=== PATIENT | male | born 1945 | race Caucasian/White ===

== ENCOUNTER 2018-09-10 05:39 | Inpatient (IN) | payer OTHER ==
--- NOTE | 2018-08-25 15:00 | GHP ---
DATE OF ADMISSION: 09/10/2018 He will be an a.m. admission for surgery at [facility] on September 10, 2018. PROBLEM: Right hip severe degenerative arthritis. HISTORY OF PRESENT ILLNESS: The patient is a 73-year-old man admitted for a right total hip arthropl asty. He has had progressive pain in the hip for about 2 years. His pain has been progressively wor se. He is having daily pain and occasional night pain. He has been taking 2 Aleve per day as well a s turmeric. It is difficult for him to walk. He has tried physical therapy, which helped his range of motion but did not decrease his pain. It is hard for him to get into and out of a car. Outpatien t evaluation shows very severe degenerative arthritis of his right hip. PAST MEDICAL HISTORY: Approximately 20 years ago he underwent a prostatectomy for prostate cancer. He had a heart attack about 20 years ago which was treated with an angioplasty. He is also treated f or hypertension and elevated cholesterol. No history of DVT, hepatitis, MRSA staph infection, sleep apnea, or bleeding problems. CURRENT MEDICATIONS: Metoprolol ER 12.5 mg per day, atorvastatin 20 mg a day, lisinopril 10 mg a day . One baby aspirin a day. DRUG ALLERGIES: None. METAL ALLERGY: None. LATEX ALLERGY: None. SOCIAL HISTORY: The patient is retired. He is . He stopped smoking cigarettes 35 years ago. He rarely drinks alcohol. FAMILY HISTORY: Positive for cancer. PHYSICAL EXAMINATION: VITAL SIGNS: Height 5 feet 6-1/2 inches. Weight 175 pounds. BMI 27.8. GENE RAL APPEARANCE: He is alert, healthy-appearing man. EYES: Conjunctivae and sclerae are clear. Pup ils are round and reactive. MOUTH: Good oral hygiene. No loose teeth. CHEST: Clear. HEART: Reg ular rhythm, no murmurs. EXTREMITIES: Pertinent findings are limited to his right hip. His right h ip has full extension and 80 degrees of flexion. External rotation 20 degrees. Internal rotation 0 degrees. Abduction 20 degrees. IMPRESSION ON ADMISSION: 1. Right hip severe degenerative arthritis. He is prepared for a right total hip arthroplasty. 2. History of coronary artery disease. Myocardial infarction 20 years ago. 3. Treatment for hypertension. 4. Treatment for elevated cholesterol. 5. Status post total prostatectomy for prostate cancer. 6. Status post left total knee arthroplasty. 7. His films show very severe degenerative arthritis to the right hip. He has no remaining cartilag e space. Cystic changes are present in the acetabulum and femoral head. He has slight arthritic bryant nge in his left hip. 8. His clerk of superior court is Dr. Logan at [facility] in [place]. He has had a stress echo t his year. He has been cleared by his clerk of superior court to proceed with surgery. PLAN: He will undergo a right total hip arthroplasty. The surgery has been described to him, includ ing the risks, complications, expectations, and recovery time. I have discussed with him the risk of dislocation, leg length inequality, infection, and sciatic nerve injury. He is 8 or 10 mm short on the right, and so I will be intentionally lengthening him. He is familiar with medical risks such as heart attack, pneumonia, stroke, or a urinary tract infection. All his questions have been answered , and he consents to surgery. Copy requested to: Dr. Logan [facility], [place] Dr. Angelita Heart [place] /[id number]/[facility]
[2018-09-10] MEDS ORDERED: GABAPENTIN 300 MG CAP PO ONE (05:52)
[2018-09-10] MEDS ORDERED: FAMOTIDINE 20 MG TAB PO ONE (05:52)
[2018-09-10] MEDS ORDERED: ACETAMINOPHEN 325 MG TAB PO ONE (05:52)
[2018-09-10] MEDS ORDERED: ONDANSETRON 4 MG/2 ML VIAL IVP ONE (05:52)
[2018-09-10] MEDS ORDERED: DEXAMETHASONE 4 MG/ML VIAL IVP ONE (05:52)
[2018-09-10] MEDS ORDERED: ceFAZolin 2 GM/DEXTROSE 100 ML IV ONE (05:52)
[2018-09-10] MEDS ORDERED: LR 1,000 ML IV ONE (05:53)
[2018-09-10] MEDS ORDERED: LIDOCAINE 1% 2 ML INJ ID PRN (05:53)
[2018-09-10] MEDS ORDERED: POVIDONE-IODINE 20 ML in SODIUM CL IRRIG SOLUTION 500 ML IRR ONE (06:00)
[2018-09-10] MEDS ORDERED: ROPIVACAINE 0.2% 80 MG, EPINEPHrine 0.2 MG, KETOROLAC TROMETHAMINE 30 MG in SYRINGE 0 ML IU ONE (06:00)
[2018-09-10] MEDS ORDERED: TRANEXAMIC ACID 3,000 MG in NS (SYRINGE) 50 ML IRR ONE (06:00)
[2018-09-10] MEDS ORDERED: TRANEXAMIC ACID 1,000 MG in NS 100 ML IV ONE (06:00)
[2018-09-10] MEDS ORDERED: TRANEXAMIC ACID 3,000 MG/50 ML BAG IRR ONE (06:33)
[2018-09-10] MEDS ORDERED: ceFAZolin 1 GM/5 ML SYR ONE (06:34)
[2018-09-10] MEDS ORDERED: MIDAZOLAM 2 MG/2 ML VIAL IVP ONE (06:48)
--- NOTE | 2018-09-10 06:48 | PDANEPAE ---
ANE Past Medical History - Cardiovascular History Hx Hypertension: Yes Hx Arrhythmias: No Hx Chest Pain: No Hx Coronary Artery / Peripheral Vascular Disease: Yes Hx CHF / Valvular Disease: No Hx Palpitations: No Cardiovascular History Comment: [place] 1995. CARDIAC CATH 1995 - Pulmonary History Hx COPD: No Hx Asthma/Reactive Airway Disease: No Hx Recent Upper Respiratory Infection: No Hx Oxygen in Use at Home: No Hx Sleep Apnea: No Sleep Apnea Screening Result - Last Documented: Negative - Neurologic History Hx Cerebrovascular Accident: No Hx Seizures: No Hx Dementia: No - Endocrine History Hx Diabetes: No Hypothyroid: No Hyperthyroid: No Obesity: no - Renal History Hx Renal Disorders: No - Liver History Hx Hepatic Disorders: No - Neurological & Psychiatric Hx Hx Neurological and Psychiatric Disorders: No - Cancer History Hx Cancer: Yes Cancer History Comment: PROSTATE. CERVICAL SPINE. LUPRON INJ EVERY 4 MOS - Congenital Disorder History Hx Congenital Disorders: No - GI History GERD: mild Hx Gastrointestinal Disorders: Yes Gastrointestinal History Comment: ACID REFLUX - NO MEDS - Other Health History Other Health History: NEG - Chronic Pain History Chronic Pain: Yes (R HIP) - Surgical History Prior Surgeries: CARDIAC CATH 1995. PROSTATECTOMY 1996. AND RADIATION 2011. CERVICAL RADIATION 2014. L TKA. L KNEE SCOPE ANE Review of Systems Review of Systems: - Exercise capacity Exercise capacity: limited by disability METS (RN): 4 METS ANE Patient History - Allergies Allergies/Adverse Reactions: No Known Allergies Allergy (Unverified 08/25/18 14:34) - Home Medications Home Medications: Aspirin [Aspirin 81mg (*)] 81 mg PO DAILY 08/27/18 [Last Taken 08/31/18] Atorvastatin Calcium [Lipitor 20 mg (*)] 20 mg PO HS 08/27/18 [Last Taken 18:00] Cholecalciferol Vit D3 [Vitamin D3 2000 units tab (OTC)] 5,000 units PO Q3D [Last Taken 08/31/18] Cyanocobalamin [Vitamin B12 (*)] 1,000 mcg PO DAILY 08/27/18 [Last Taken ] Folic Acid [Folic Acid 1 MG (*)] 500 mg PO DAILY 08/27/18 [Last Taken 08/31/18] Herbals/Supplements -Info Only 1 ea PO DAILY 08/27/18 [Last Taken 08/31/18] Lisinopril [Zestril 10 mg (*)] 10 mg PO DAILY 08/27/18 [Last Taken 09/09/18 07: 00] Metoprolol Succinate [Toprol Xl] 12.5 mg PO DAILY 08/27/18 [Last Taken 09/10/18 03:30] Hatfield-3 Fatty Acids [Fish Oil 1000 mg (*)] 1,000 mg PO DAILY 08/27/18 [Last Taken 08/31/18] - Anes Hx Anes Hx: no prior problems - Smoking Hx Smoking Status: Former smoker Marijuana use: No - Alcohol Use Alcohol Use: Rarely - Family Anes Hx Family Anes Hx: neg - N/A Family Hx Anesthesia Complications: NEG ANE Labs/Vital Signs - Labs - CBC WBC: 5.72 RBC: 4.29 HGB: 14.1 HCT: 43.1 Platelet Count: 252 - Vital Signs Height: 168.91 cm Weight: 77.111 kg ANE Physical Exam - Airway Neck exam: decreased ROM Mallampati Score: Class 2 Mouth exam: normal dental/mouth exam - Pulmonary Pulmonary: no respiratory distress, no rales or rhonchi, clear to auscultation - Cardiovascular Cardiovascular: regular rate and rhythym - ASA Status ASA Status: III ANE Anesthesia Plan Anesthesia Plan: MAC, spinal Total IV Anesthesia: No
--- NOTE | 2018-09-10 06:51 | PDHPUP ---
History & Physical Update H&P update statement: This history and physical update is based on an assessment of the patient which was completed after admission or registration (within 24 hours), but prior to the surgery/procedure. H&P update: H&P reviewed & patient examined
[2018-09-10] MEDS ORDERED: PROPOFOL/EMULSION 500 MG/50 ML BOTTLE IV ONE (07:07)
[2018-09-10] MEDS ORDERED: fentaNYL 100 MCG/2 ML INJ ONE (07:07)
[2018-09-10] MEDS ORDERED: BUPIVACAINE/DEXTROSE 7.5MG/ML 2 ML SPINAL AMP SP ONE (07:08)
[2018-09-10] MEDS ORDERED: PHENYLEPHRINE HCL 100 MCG/ML SYR ONE ×2 (07:23→07:37)
[2018-09-10] MEDS ORDERED: ePHEDrine SULFATE 25 MG/5 ML SYR ONE (07:41)
[2018-09-10] MEDS ORDERED: NALOXONE HCL 0.4 MG/ML INJ IVP PRN (07:46)
[2018-09-10] MEDS ORDERED: PHENYLEPHRINE HCL 100 MCG/ML SYR IVP PRN (07:46)
[2018-09-10] MEDS ORDERED: ONDANSETRON 4 MG/2 ML VIAL IVP PRN ×2 (07:46→08:47)
[2018-09-10] MEDS ORDERED: LR 500 ML IV PRN (07:46)
[2018-09-10] MEDS ORDERED: PROMETHAZINE HCL 25 MG/ML INJ IVP PRN ×2 (07:46→08:47)
[2018-09-10] MEDS ORDERED: PHENYLEPHRINE 10 MG/ML SDV ONE (08:05)
[2018-09-10] MEDS ORDERED: TEMAZEPAM 15 MG CAP PO PRN (08:47)
[2018-09-10] MEDS ORDERED: diphenhydrAMINE 25 MG CAP PO PRN (08:47)
[2018-09-10] MEDS ORDERED: LACTULOSE 20 GM/30 ML UDCUP PO PRN (08:47)
[2018-09-10] MEDS ORDERED: METOCLOPRAMIDE 10 MG/2 ML VIAL IVP PRN (08:47)
[2018-09-10] MEDS ORDERED: DIPHENOXYLATE/ATROPINE LOMOTIL 1 TAB PO PRN (08:47)
[2018-09-10] MEDS ORDERED: POLYETHYLENE GLYCOL 3350 17 GM PKT PO PRN (08:47)
[2018-09-10] MEDS ORDERED: traMADol 50 MG TAB PO PRN (08:47)
[2018-09-10] MEDS ORDERED: ONDANSETRON DISINTEGRATING 4 MG TAB PO PRN (08:47)
[2018-09-10] MEDS ORDERED: MAGNESIUM HYDROXIDE 30 ML UDCUP PO PRN (08:47)
[2018-09-10] MEDS ORDERED: PROMETHAZINE HCL 25 MG SUPPR PR PRN (08:47)
[2018-09-10] MEDS ORDERED: NS 500 ML IV PRN (08:47)
[2018-09-10] MEDS ORDERED: BISACODYL 10 MG SUPP PR PRN (08:47)
[2018-09-10] MEDS ORDERED: oxyCODONE IR 5 MG TAB PO PRN (08:47)
[2018-09-10] MEDS ORDERED: FERROUS SULFATE 140 MG TAB.ER PO SCH (09:00)
[2018-09-10] MEDS ORDERED: LR 1,000 ML IV SCH (09:00)
[2018-09-10] MEDS ORDERED: FOLIC ACID 1 MG TAB PO SCH (09:00)
--- NOTE | 2018-09-10 09:56 | GOP ---
DATE OF OPERATION: 09/10/2018 SURGEON: Yoel Man MD NEUROSURGEON: Yoel Man MD. CONSTRUCTION SALES MANAGER: Tony Eastman and Julio Aguilar. ANESTHESIA: Combination of Marcaine, spinal, and IV sedation. ANESTHESIOLOGIST: Dedra Auguste DO. PREOPERATIVE DIAGNOSIS: Right hip severe degenerative arthritis. POSTOPERATIVE DIAGNOSIS: Right hip severe degenerative arthritis. PROCEDURE PERFORMED: September 10, 2018, right total hip arthroplasty, ceramic femoral head on highly cross-linked polyethylene cup liner. FINDINGS: DESCRIPTION OF PROCEDURE: The patient was given 2 g of IV Ancef within 60 minutes of surgery. He al so received 1000 mg of IV tranexamic acid. He was placed on the operating room table and given spina l anesthesia with Marcaine by Dr. Auguste. He was then placed supine and given IV sedation. A F oley catheter was not used. He wore a DENIZ stocking and SCD on the nonoperative leg. He was rolled t o the left lateral decubitus position. The position was secured with the pegboard table attachment. An axillary roll was used, and all pressure points were carefully padded. I was careful to lock his pelvis in a vertical position. His perineum was isolated with plastic adhesive drapes. The right h ip and right lower extremity were prepped with ChloraPrep. They were draped free using sterile sheet s, stockinette, and Ioban plastic drapes. The World Health Organization time-out was performed to verify the correct surgical side and site and the correct patient identity. The Kirk time-out was also performed. I made a 5-inch straight oblique posterolateral hip skin incision. The subcutaneous tissues were sha rply divided, and hemostasis was obtained using electrocautery. His fascia sara was identified and s plit distally along the axis of its fibers. I then curved proximally and posteriorly and split the f ascia of the gluteus heather and bluntly split the muscle fibers in line with their orientation. The Charnley self-retaining retractor was inserted. His sciatic nerve was located, partially exposed, a nd protected throughout the procedure. The external rotators and the posterior hip capsule were divi ded as separate layers at the base of the femoral neck, tagged, and reflected posteriorly. A smooth 8-inch Steinmann pin was inserted vertically into the ilium, superior to the acetabulum. An 8-inch d rill bit was inserted vertically into the greater trochanter and parallel to the first pin. The dist ance between the 2 was measured for leg length reference. His femoral head was dislocated posteriorl y. Severe degenerative changes were present. His femoral neck was osteotomized at the appropriate l evel and inclination. I was careful to preserve all the posterior capsule and most of the anterior capsule. The remnant of his damaged labrum was excised. I prepared the femur first. This allowed me to needle setter the amount of natural femoral neck anteversion. This, in turn, allowed me to later determine the correct amount of cup anteversion. He had approxi mately 10 degrees of natural femoral neck anteversion. The canal was opened laterally with a box chi kirk. I hand broached sequentially up to size 7. I was using the Intervale Accolade II standard offset stem in a size 7 as a trial broach. I was careful to lateralize adequately. Appropriate retractors were inserted to expose the acetabulum. The acetabulum was reamed sequentiall y up to 58 mm. He had a 1.5 cm cyst in the superomedial aspect of his acetabulum. This was curetted down to healthy bone. I created a bone graft by reaming the cut surface of the removed femoral head and neck. The bone graft was packed into the cyst. I selected a 58 mm Maria Luisa Tritanium cluster ho le hemispherical shell. This was tapped securely into place in the proper degree of inclination ante version. I used the transverse acetabular ligament and other acetabular bony landmarks to help me pr operly orient the cup. Supplemental screws were not necessary. I removed anterior acetabular osteop hytes with the osteotome and rongeur. I performed a series of trial reductions to determine length a nd stability. I concluded that the size 7 stem with a 0 neck with a 36 mm head and a 0 degree liner gave me the proper combination of appropriate length and good anterior and posterior stability. He w as short preoperatively, and I was intentionally lengthening him. I took an intraoperative AP pelvis x-ray. This showed excellent fit of his femoral component. The leg lengths were equal. I thought I could add a little bit of additional anteversion to the cup. I then went back and adjusted the cup to add a few more degrees of anteversion. The flush or 0 degre e Intervale X3 highly cross-linked polyethylene liner was inserted and tapped securely into place. The Maria Luisa Accolade II stem in a size 7 with standard offset was inserted press-fit and was very tight. I did 1 final trial reduction and confirmed that the 0 neck length with a 32 mm head was the proper combination. The Maria Luisa Biolox Delta ceramic head with an outside diameter of 36 mm and a neck francheska gth of 0 mm was tapped securely onto the clean trunnion. The acetabulum was irrigated, cleaned, and the hip was reduced 1 final time. He had excellent anterior and posterior stability and appropriate lengthening. 40 mL of the joint anesthetic cocktail were injected into the capsule, the deep musculature, and the subcutaneous tissues around the skin edges. The joint was thoroughly irrigated 1 final time with a d ilute Betadine solution. His sciatic nerve was reinspected and looked unharmed. The external rotators and the posterior hip capsule were repaired in separate layers with #2 FiberWir e sutures through drill holes in the greater trochanter. This provided a strong posterior capsular a nd external rotator repair. The fascia sara was closed first with 2 [id number] #2 FiberWire sut ures followed by a running #2 barbed Ethicon Stratafix PDO suture. The subcutaneous tissues were christopher sed with a running 0 barbed Ethicon Stratafix Monoderm suture. The skin was closed with a running 3- 0 barbed Ethicon Stratafix Monoderm subcuticular suture. The skin edges were reapproximated and seal ed with Dermabond glue. The wound was covered with a strip of waterproof Mepilex surgical dressing. The Mepilex sacral dressing was also applied. A long-leg DENIZ stocking and SCD were applied to his right lower extremity. An abduction pillow was p laced between his knees. He was awakened from anesthesia and rolled to the supine position on his [facility] gurney. He was taken to PACU in satisfactory condition. There were no recognized intraoperat mayela complications. The estimated blood loss was about 400 mL. The sponge and needle count were correct on 2 occasions. I used a Maria Luisa Tritanium Trident II hemispherical cluster hole acetabular shell with an outside tessie meter of 58 mm. The liner was a Maria Luisa X3 flush highly cross-linked liner with an inside diameter o f 36 mm. The femoral component was a press-fit Maria Luisa standard offset Accolade II stem in size 7. The femoral head was a Maria Luisa Biolox Delta ceramic head with a 0 neck length and a 36 mm outside tessie meter. Tony Eastman and Julio Aguilar acted as surgical assistants. Their assistance was a medical necess ity for safe completion of the procedure. Copy requested to: Angelita Heart MD /[id number]/[facility]
--- NOTE | 2018-09-10 10:25 | POSTANESTH ---
Post Anesthetic Evaluation Cardiovascular Status: Normal, Stable Respiratory Status: Normal, Stable Level of Consciousness/Mental Status: Can Participate in Eval Pain Control: Adequate, Prn Tx Ordered Nausea/Vomiting Control: Adequate, Prn Tx Ordered Complications Possibly Related to Anesthesia: None Noted
--- NOTE | 2018-09-10 10:38 | PDMN ---
Medical Necessity Medical necessity: [facility] S560 Total Hip Arthroplasty: 73 yo s/p R PETER, [facility] IP only
[2018-09-10] MEDS: METOPROLOL SUCCINATE XR 25 MG TAB PO SCH (11:04)
[2018-09-10] MEDS: CYANO/VITAMIN B12 1000 MCG TAB PO SCH (11:09)
[2018-09-10] MEDS: SENNOSIDES/DOCUSATE SODIUM TAB PO SCH ×2 (11:11→21:02)
[2018-09-10] MEDS: LISINOPRIL 10 MG TAB PO SCH ×2 (11:12→13:06)
[2018-09-10] MEDS: ACETAMINOPHEN 325 MG TAB PO SCH ×3 (12:24→23:05)
[2018-09-10] MEDS: KETOROLAC 15 MG/1 ML SDV IVP SCH ×3 (12:27→23:06)
[2018-09-10] MEDS: FOLIC ACID 1 MG TAB PO SCH (12:31)
[2018-09-10] MEDS: ceFAZolin 2 GM/DEXTROSE 100 ML IV SCH ×2 (16:00→23:05)
[2018-09-10] MEDS: CYCLOBENZAPRINE 10 MG TAB PO PRN (16:16)
[2018-09-10] MEDS ORDERED: ATORVASTATIN CALCIUM 20 MG TAB PO SCH (21:00)
[2018-09-10] MEDS: FAMOTIDINE 20 MG TAB PO SCH (21:02)
[2018-09-10] MEDS: ASPIRIN 325 MG TAB PO SCH (21:11)
[2018-09-11] MEDS: CYCLOBENZAPRINE 10 MG TAB PO PRN ×2 (00:18→13:24)
[2018-09-11] MEDS: KETOROLAC 15 MG/1 ML SDV IVP SCH (05:23)
[2018-09-11] MEDS: ACETAMINOPHEN 325 MG TAB PO SCH ×2 (05:24→12:22)
--- NOTE | 2018-09-11 07:09 | SOAPPROG ---
SOAP Progress Note Assessment/Plan: Assessment: Afebrile. Awake and alert. Mild pain. Has been up and walking in the [place]. H/H is good. Films look good. Sciatic nerve intact. Dressing is dry. Plan:Up with PT today. DC later today. 09/11/18 07:08 Objective: Vital Signs Temp Pulse Resp BP Pulse Ox 37.2 C 63 14 99/63 L 96 09/11/18 04:00 09/11/18 04:00 09/11/18 04:00 09/11/18 04:00 09/11/18 04:00 Laboratory Results 09/11/18 04:47 09/10/18 09/11/18 09/12/18 05:59 05:59 05:59 Intake Total 4085 Output Total 5500 Balance 1335 ICD10 Worksheet Patient Problems: Problems Problem Status Onset Osteoarthritis of right hip Acute
--- NOTE | 2018-09-11 07:35 | GDS ---
ADMISSION DIAGNOSIS: Right hip severe degenerative arthritis. DISCHARGE DIAGNOSIS: Right hip severe degenerative arthritis. OPERATION PERFORMED: 09/10/2018, right total hip arthroplasty. POSTOPERATIVE COMPLICATIONS: None. CONDITION ON DISCHARGE: Improved. DESCRIPTION OF HOSPITAL COURSE: The patient was admitted to the hospital on the morning of surgery. The same day, under a combination of Marcaine, spinal, and IV sedation, he underwent a right total h ip arthroplasty. Postoperatively, he was treated with multimodal DVT prophylaxis, including aspirin. On the first postoperative day his hemoglobin and hematocrit were 10.2 and 29.9. He was [facility] and made rapid progress with ambulation and stairs. By the time of discharge, he was afebrile, his wound was clean and dry, and he was independent walking with a walker. DISPOSITION: The patient is discharged to his home in [place]. He will go to outpatient physica l therapy in [place] next week. He may progress to full weightbearing on the right as tolerated. Use an abduction pillow in bed for 3 weeks. Use DENIZ stockings for 1 week. He has prescriptions fo r Celebrex, tramadol and oxycodone for pain control. Continue aspirin 325 mg p.o. daily for 21 days. I will see him back in the office on October 02, 2018. If there are any problems, he is to call xiomara ferro at the office. Copy requested to: Angelita Heart MD [place], [place] /[id number]/MADDIEL
[2018-09-11] MEDS: SENNOSIDES/DOCUSATE SODIUM TAB PO SCH (08:57)
[2018-09-11] MEDS: METOPROLOL SUCCINATE XR 25 MG TAB PO SCH (08:58)
[2018-09-11] MEDS: ASPIRIN 325 MG TAB PO SCH (08:59)
[2018-09-11] MEDS: FOLIC ACID 1 MG TAB PO SCH (09:00)
[2018-09-11] MEDS ORDERED: FERROUS SULFATE 325 MG TAB PO SCH (09:00)
[2018-09-11] MEDS: CYANO/VITAMIN B12 1000 MCG TAB PO SCH (09:01)
[2018-09-11] MEDS: FAMOTIDINE 20 MG TAB PO SCH (09:02)
--- NOTE | 2018-09-11 09:50 | ASMTLACE ---
LACE Length of stay for Answers: 1 day current admission Acuity / Level of Answers: Yes Care: Did the patient have an inpatient admission? Comorbidities - select Answers: Coronary Artery Disease all that apply Opioid dependence / Chronic pain Previous myocardial infarction Other Notes: Hx of cancer; HTN # of Emergency department Answers: 0 visits in the last 6 months Score: 12 Date Signed: 09/11/2018 09:49 AM Electronically Signed By:Lina Cardenas RN
--- NOTE | 2018-09-11 10:34 | ASDISCHSUM ---
Discharge Information Plan Status:Home with No Needs Medically Cleared to Leave:09/10/2018 Discharge Date:09/10/2018 CM D/C Disposition:Home, Routine, Self-Care ADT D/C Disposition:Home, Routine, Self-Care Projected Discharge Date:09/10/2018 Transportation at D/C: Discharge Delay Reason: Follow-Up Date:09/10/2018 Discharge Slot: Final Diagnosis: Placement Information Patient Contact Information Contact Name:LONG Relationship: Address:[address] Work Phone: City:[place] Alternate Phone: State/Zip Code:[place] [address] Email: Financial Information Financial Class:Medicare Advantage Plans Primary Plan Desc:[facility] [employer] PLANS Primary Plan Number:[id number] Secondary Plan Desc: Secondary Plan Number: Assessment Information LACE LACE Length of stay for Answers: 1 day current admission Acuity / Level of Answers: Yes Care: Did the patient have an inpatient admission? Comorbidities - select Answers: Coronary Artery Disease all that apply Opioid dependence / Chronic pain Previous myocardial infarction Other Notes: Hx of cancer; HTN # of Emergency department Answers: 0 visits in the last 6 months Score: 12 Date Signed: 09/11/2018 09:49 AM Electronically Signed By:Lina Cardenas RN Case Management Discharge Plan Note Case Management Discharge Discharge Order Complete? Answers: Yes Discharge Comments Notes: 09/11/2018 Case Management Note Met w/pt and Maren [phone] to discuss d/c needs. Maren is wheel chair bound and oxygen dependent at baseline. Pt has arranged a ride to [facility] to return home. Pt has 2 daughters and a son in law to assist once home. Pt plans for outpatient PT in [facility]. Pt is ambulating in the hallway with a walker and moving independently in his room. No further case management d/c needs were identified. Case Management d/c poc: home with follow up as directed. Date Signed: 09/11/2018 10:33 AM Electronically Signed By:Lina Cardenas RN Intervention Information
[2018-09-11 12:11] VITALS: BP 104/56
[2018-09-13] MEDS ORDERED: CHOLECALCIFEROL VIT D3 2,000 UNITS TAB/CAP PO SCH (08:00)
== END 2018-09-11 15:19 | disposition home or self-care (01) | DRG 470 ==
LOC: F3E 05:39 → EDSTATUS 07:15 → F3N 10:28
PROVIDERS: ADMIT Orthopaedic Surgery; ATTEND Orthopaedic Surgery
PROC: 0SR904Z Replacement of Right Hip Joint with Ceramic on Polyethylene Synthetic Substitute, Open Approach (ICD-10-PCS; principal; 2018-09-10 07:15)
DX: M16.0 Bilateral primary osteoarthritis of hip (principal); I10 Essential (primary) hypertension; I25.10 Atherosclerotic heart disease of native coronary artery without angina pectoris; I25.2 Old myocardial infarction
CPT/HCPCS: 97116-GP; 97161-GP; 97165-GO; 97530-GP; 97535-GO; G8978-GP-CI; G8978-GP-CJ; G8979-GP-CI; G8987-GO-CI; G8988-GO-CI; G8989-GO-CI; J0171; J0690; J1100; J1885; J2250; J2370; J2405; J2704; J2795; J3010